=== PATIENT | female | born 1945 | race Hispanic/Latino ===

== ENCOUNTER 2021-08-01 23:41 | Emergency (ER) | payer OTHER ==
[~2021-08-01] VITALS: Ht 152.4 cm; Wt 63.5 kg
[2021-08-01] MEDS ORDERED: SODIUM CHLORIDE 0.9% 1000ML 1,000 ML IV STA (23:50)
[2021-08-02] MEDS ORDERED: ONDANSETRON HCL INJ 2MG/ML 2ML 2 MG/ML VIAL IV STA (00:12)
[2021-08-02] MEDS ORDERED: NICARDIPINE 20MG/200ML PREMIX 200 ML IV SCH (00:15)
[2021-08-02] MEDS ORDERED: NICARDIPINE 20MG/200ML PREMIX 200 ML ONE (00:27)
[2021-08-02] MEDS ORDERED: LEVETIRACETAM 500MG/5ML VIAL 500 MG in SODIUM CHLORIDE 0.9% 100 ML 100 ML IV SCH (00:30)
[2021-08-02 00:36] LABS: HEMOGLOBIN 8.6 g/dL (12.0-16.0); LYMPHOCYTES # (AUTO) 0.7 (1.0-3.2); MEAN CORPUSCULAR HEMOGLOBIN 29.4 pg (28-32); MEAN CORPUSCULAR HGB CONC 33.1 g/dL (31-35); MEAN CORPUSCULAR VOLUME 88.7 fL (81-99); MONOCYTES # (AUTO) 0.2 (0.2-0.8); MONOCYTES % 8.6 % (4.4-11.3); NEUTROPHILS # (AUTO) 1.1 (2.1-6.9); NEUTROPHILS % 56.4 % (38.7-80.0); RED BLOOD COUNT 2.93 x10e6/uL (3.6-5.1); RED CELL DISTRIBUTION WIDTH 15.8 % (11.7-14.4)
[2021-08-02 00:39] LABS: PLATELET COUNT 28 x10e3/uL (140-360)
[2021-08-02] MEDS ORDERED: IOPAMIDOL 370 MG/ML 200 ML INFUS..BTL INJ ONE (00:50)
[2021-08-02] MEDS ORDERED: SODIUM CHLORIDE 0.9% 100 ML ONE ×2 (00:50→01:29)
[2021-08-02 00:59] LABS: ALBUMIN 3.2 g/dL (3.5-5.0); ANION GAP 11.8 mmol/L (8-16); CALCIUM 8.4 mg/dL (8.4-10.2); CREATININE, SERUM 0.71 mg/dL (0.57-1.11)
[2021-08-02 01:00] LABS: POTASSIUM 2.8 mmol/L (3.5-5.1)
[2021-08-02] MEDS ORDERED: POTASSIUM CHLORIDE 20MEQ/100ML 100 ML IV SCH (01:00)
[2021-08-02] MEDS ORDERED: POTASSIUM CHL 40 MEQ in SODIUM CHLORIDE 0.9% 250ML 230 ML IV STA (01:00)
[2021-08-02 01:09] LABS: CREATINE KINASE MB 0.6 ng/mL (0-5.0)
[2021-08-02] MEDS ORDERED: LEVETIRACETAM 500 MG/5 ML VIAL IV ONE (01:28)
[2021-08-02 01:31] LABS: ANISOCYTOSIS SLIGHT; BURR CELLS 1+; LYMPHOCYTES % (MANUAL) 34 % (19-48); MONOCYTES % (MANUAL) 3 % (3.4-9.0); MYELOCYTES % (MANUAL) 4 % (0-0); NEUTROPHILS % (MANUAL) 59 % (40-74); OVALOCYTES 1+; PLATELET ESTIMATE MARKEDLY DECREASED; PLATELET MORPHOLOGY COMMENT NORMAL; POLYCHROMASIA FEW; TEAR DROP CELLS OCC
[2021-08-02 01:55] VITALS: BP 131/81
== END 2021-08-02 01:58 | disposition other institution (70) ==
LOC: ER 23:45
DX: I60.9 Nontraumatic subarachnoid hemorrhage, unspecified (principal); I62.00 Nontraumatic subdural hemorrhage, unspecified; I16.1 Hypertensive emergency; D61.818 Other pancytopenia; R51.9 Headache, unspecified; R11.2 Nausea with vomiting, unspecified; I10 Essential (primary) hypertension
CPT/HCPCS: 36415; 51700; 70450; 70496; 71045; 80053; 82550; 82553; 83880; 84484; 85025; 99284; J1953; J2405; J3480; J7030; J7050; Q9967